=== PATIENT | male | born 1955 | race Caucasian/White ===

== ENCOUNTER 2021-05-14 08:13 | Outpatient (CLI) | payer BC | END 2021-05-14 23:59 | disposition home or self-care (01) | LOC: RAD 08:13 | DX: M48.56XA Collapsed vertebra, not elsewhere classified, lumbar region, initial encounter for fracture (principal) | CPT/HCPCS: 72148 ==

== ENCOUNTER 2024-03-05 13:17 | Inpatient (IN) | payer BC, MEDICARE ==
[~2024-03-05] VITALS: Ht 177.8 cm; Wt 74.5 kg
[2024-03-05 13:42] LABS: BASOPHILS # (AUTO) 0.1 X10'3 (0-0.2); BASOPHILS % (AUTO) 0.4 % (0-1); EOSINOPHILS # (AUTO) 0.1 X10'3 (0-0.9); EOSINOPHILS % (AUTO) 0.5 % (0-6); HEMATOCRIT 40.3 % (42.0-52.0); HEMOGLOBIN 13.4 g/dl (14.0-17.9); LYMPHOCYTES # (AUTO) 1.5 X10'3 (1.1-4.8); LYMPHOCYTES % (AUTO) 11.6 % (21-51); MEAN CORPUSCULAR HEMOGLOBIN 30.1 PG (27.0-31.0); MEAN CORPUSCULAR HGB CONC 33.2 g/dL (33.0-36.5); MEAN CORPUSCULAR VOLUME 90.8 FL (78-98); MEAN PLATELET VOLUME 8.3 FL (7.4-10.4); MONOCYTES # (AUTO) 1.4 X10'3 (0-0.9); MONOCYTES % (AUTO) 11.1 % (2-12); NEUTROPHILS # (AUTO) 9.6 X10'3 (1.8-7.7); NEUTROPHILS % (AUTO) 76.4 % (42-75); PLATELET COUNT 207 X10'3 (140-440); RED BLOOD COUNT 4.45 X10'6 (4.70-6.10); RED CELL DISTRIBUTION WIDTH 15.8 % (11.5-14.5); WHITE BLOOD COUNT 12.6 X10'3 (4.5-11.0)
[2024-03-05 13:58] LABS: ALANINE AMINOTRANSFERASE 80 U/L (12-78); ALBUMIN/GLOBULIN RATIO 0.6 (1.1-1.5); ALKALINE PHOSPHATASE 173 IU/L (46-116); ANION GAP 8 (8-16); ASPARTATE AMINO TRANSFERASE 70 U/L (10-37); BILIRUBIN,TOTAL 1.6 MG/DL (0.1-1.0); BLOOD UREA NITROGEN 24 MG/DL (7-18); BUN/CREATININE RATIO 14.8 (10.0-20.0); CALCIUM 9.5 MG/DL (8.5-10.1); CHLORIDE 93 MMOL/L (99-107); CREATININE 1.62 MG/DL (0.60-1.10); GLUCOSE 254 MG/DL (70-104); POTASSIUM 3.9 MMOL/L (3.5-5.1); SODIUM 127 MMOL/L (135-145); TOTAL CARBON DIOXIDE 26.3 MMOL/L (24-32); TOTAL PROTEIN 7.7 G/DL (6.4-8.2); eCRCL 41 ML/MIN; eGFR 42 ML/MIN
[2024-03-05 14:04] LABS: PRO BRAIN NATRIURETIC PEPTIDE 1034 PG/ML (0-125)
[2024-03-05 16:39] LABS: BILIRUBIN,URINE NEGATIVE (Neg); CLARITY,URINE CLEAR (Clear); COLOR,URINE YELLOW (Yellow); GLUCOSE, URINE 100 mg/dl (Neg); KETONES,URINE TRACE mg/dl (Neg); LEUKOCYTE ESTERASE ,URINE NEGATIVE (Neg); NITRITES, URINE NEGATIVE (Neg); OCCULT BLOOD,URINE NEGATIVE (Neg); PROTEIN,URINE NEGATIVE (Neg); UROBILINOGEN,URINE 0.2 E.U/dL (0.2-1.0)
[2024-03-05 16:42] LABS: UA COLLECTION TYPE CLN CATCH MIDSTREAM
[2024-03-05] MEDS: normal saline 1000ml 1,000 ML IV SCH (17:00)
[2024-03-05] MEDS ORDERED: acetaminophen 325mg tablet PO PRN (17:00)
[2024-03-05] MEDS ORDERED: magnesium hydroxide 30ml (MOM) UD suspension PO PRN (17:00)
[2024-03-05] MEDS ORDERED: ondansetron/PF 4mg/2ml inj IV PRN (17:00)
[2024-03-05] MEDS ORDERED: morphine 2 MG/ML inj. syringe IV PRN ×2 (17:00)
[2024-03-05] MEDS ORDERED: mag hydrox/Alum hydrox/simeth 30ml oral suspension PO PRN (17:00)
[2024-03-05 17:47] LABS: THYROID STIMULATING HORMONE 1.96 ulU/ml (0.34-4.50)
[2024-03-05 17:48] LABS: PRO BRAIN NATRIURETIC PEPTIDE 800 PG/ML (0-125)
[2024-03-05 18:00] LABS: HEMOGLOBIN A1C 10.2 % (4.5-6.2)
[2024-03-05] MEDS ORDERED: INSU300I3 (19:17)
[2024-03-05] MEDS ORDERED: ALLO300T8 PO (19:17)
[2024-03-05] MEDS ORDERED: LOSA50TA64 PO (19:17)
[2024-03-05] MEDS ORDERED: ATOR-2 PO (19:17)
[2024-03-05] MEDS ORDERED: GLIM4TAB7 PO (19:17)
[2024-03-05] MEDS ORDERED: TADA5TAB2 PO (19:19)
[2024-03-05] MEDS ORDERED: GLIM2TAB6 PO (19:19)
[2024-03-05] MEDS: docusate sod 100mg capsule PO SCH (20:00)
[2024-03-05] MEDS ORDERED: glucagon, human recombinant 1mg kit SUBCUT PRN (21:05)
[2024-03-05] MEDS ORDERED: DEXTROSE 15 GM of carb/4 tabs (each vial/BOTTLE has 4 tablets) PO PRN ×2 (21:05)
[2024-03-05] MEDS ORDERED: dextrose 50%-water 50ml dispensing syringe IV PRN ×2 (21:05)
[2024-03-05] MEDS: INSULIN LISPRO 100 UNIT/ML INSULN.PEN MULTI-DOSE SQ SCH (21:45)
[2024-03-05] MEDS: insulin glargine (Lantus) pen - multi-dose SQ SCH (21:46)
[2024-03-06] MEDS: acetaminophen 325mg tablet PO PRN (01:23)
[2024-03-06 06:00] VITALS: BP 116/54; PULSE 83; RESP 15; TEMP 100; O2SAT 96
[2024-03-06 06:03] LABS: BASOPHILS % (AUTO) 0.2 % (0-1); EOSINOPHILS % (AUTO) 0.3 % (0-6); HEMATOCRIT 34.7 % (42.0-52.0); HEMOGLOBIN 11.5 g/dl (14.0-17.9); LYMPHOCYTES # (AUTO) 1.1 X10'3 (1.1-4.8); LYMPHOCYTES % (AUTO) 8.9 % (21-51); MEAN CORPUSCULAR HEMOGLOBIN 29.6 PG (27.0-31.0); MEAN CORPUSCULAR HGB CONC 33.1 g/dL (33.0-36.5); MEAN CORPUSCULAR VOLUME 89.3 FL (78-98); MEAN PLATELET VOLUME 8.3 FL (7.4-10.4); MONOCYTES # (AUTO) 0.9 X10'3 (0-0.9); MONOCYTES % (AUTO) 7.6 % (2-12); NEUTROPHILS # (AUTO) 10.1 X10'3 (1.8-7.7); PLATELET COUNT 168 X10'3 (140-440); RED BLOOD COUNT 3.89 X10'6 (4.70-6.10); RED CELL DISTRIBUTION WIDTH 15.4 % (11.5-14.5); WHITE BLOOD COUNT 12.2 X10'3 (4.5-11.0)
[2024-03-06 06:11] LABS: ALBUMIN 2.3 G/DL (3.4-5.0); ANION GAP 9 (8-16); BLOOD UREA NITROGEN 25 MG/DL (7-18); BUN/CREATININE RATIO 15.9 (10.0-20.0); CALCIUM 8.6 MG/DL (8.5-10.1); CHLORIDE 97 MMOL/L (99-107); CREATININE 1.57 MG/DL (0.60-1.10); GLUCOSE 295 MG/DL (70-104); POTASSIUM 4.3 MMOL/L (3.5-5.1); SODIUM 130 MMOL/L (135-145); TOTAL CARBON DIOXIDE 23.6 MMOL/L (24-32); eCRCL 45 ML/MIN; eGFR 44 ML/MIN
[2024-03-06 07:38] LABS: MAGNESIUM 1.5 MG/DL (1.5-2.4); PHOSPHORUS 3.2 MG/DL (2.3-4.5)
[2024-03-06 08:00] VITALS: RESP 16; O2SAT 94
[2024-03-06 10:30] LABS: ETHANOL < 10 MG/DL (<10)
[2024-03-06] MEDS: allopurinol 300 MG tablet PO SCH (10:45)
[2024-03-06] MEDS: enoxaparin 40mg/0.4ml syringe SUBCUT SCH (10:45)
[2024-03-06 10:53] LABS: URINE AMPHETAMINE SCREEN NEGATIVE (Neg); URINE BARBITUATE SCREEN NEGATIVE (Neg); URINE BENZODIAZEPINES SCREEN NEGATIVE (Neg); URINE CANNABINOID SCREEN NEGATIVE (Neg); URINE COCAINE SCREEN NEGATIVE (Neg); URINE METHADONE SCREEN NEGATIVE (Neg); URINE OPIATE SCREEN NEGATIVE (Neg); URINE PHENCYCLIDINE SCREEN NEGATIVE (Neg)
[2024-03-06 11:00] VITALS: BP 111/73; PULSE 85; RESP 21; TEMP 97.6; O2SAT 98
[2024-03-06] MEDS ORDERED: FURO-150 PO (12:41)
[2024-03-06] MEDS ORDERED: losartan 50mg tablet PO SCH (20:00)
[2024-03-07] MEDS ORDERED: TADALAFIL 5 MG PO SCH (08:00)
[2024-03-07] MEDS ORDERED: atorvastatin 20mg tablet PO SCH (08:00)
== END 2024-03-06 13:07 | disposition home or self-care (01) | DRG 70 ==
LOC: ER 13:19 → ED HOLD 17:07 → EDBEDREQ 23:33 → PCU 3S 03-06 00:10
PROVIDERS: ADMIT Internal Medicine; ATTEND Internal Medicine
PROC: 4A00X4Z Measurement of Central Nervous Electrical Activity, External Approach (ICD-10-PCS; principal; 2024-03-06)
DX: G93.41 Metabolic encephalopathy (principal); N17.0 Acute kidney failure with tubular necrosis; I50.30 Unspecified diastolic (congestive) heart failure; E87.1 Hypo-osmolality and hyponatremia; E11.65 Type 2 diabetes mellitus with hyperglycemia; M25.512 Pain in left shoulder; M54.2 Cervicalgia; R63.4 Abnormal weight loss; R56.9 Unspecified convulsions; Z68.23 Body mass index [BMI] 23.0-23.9, adult
CPT/HCPCS: 36415; 71045; 80048; 80053; 80305; 80320; 81003; 82140; 82948; 83036; 83735; 83880; 84100; 84443; 84484; 85025; 87081; 93005; 93306; 95816; 99285; G0378; J1650; J1815; J7030

== ENCOUNTER 2024-03-12 05:13 | Inpatient (IN) | payer BC, MEDICARE ==
[~2024-03-12] VITALS: Ht 332.7 cm; Wt 86.7 kg
[~2024-03-12 05:13] MED LIST: ALLO300T8 PO; ATOR-2 PO; FURO-150 PO; GLIM4TAB7 PO; INSU300I3; LOSA50TA64 PO; TADA5TAB2 PO
[2024-03-12 06:42] LABS: ALANINE AMINOTRANSFERASE 76 U/L (12-78); ALBUMIN 2.1 G/DL (3.4-5.0); ALBUMIN/GLOBULIN RATIO 0.6 (1.1-1.5); ALKALINE PHOSPHATASE 154 IU/L (46-116); ANION GAP 10 (8-16); ASPARTATE AMINO TRANSFERASE 46 U/L (10-37); BILIRUBIN,TOTAL 1.7 MG/DL (0.1-1.0); BLOOD UREA NITROGEN 20 MG/DL (7-18); BUN/CREATININE RATIO 13.2 (10.0-20.0); CALCIUM 8.5 MG/DL (8.5-10.1); CHLORIDE 98 MMOL/L (99-107); CREATININE 1.52 MG/DL (0.60-1.10); GLUCOSE 345 MG/DL (70-104); POTASSIUM 3.9 MMOL/L (3.5-5.1); SODIUM 129 MMOL/L (135-145); TOTAL CARBON DIOXIDE 21.3 MMOL/L (24-32); TOTAL PROTEIN 5.9 G/DL (6.4-8.2); eCRCL 48 ML/MIN; eGFR 46 ML/MIN
[2024-03-12 06:50] LABS: PRO BRAIN NATRIURETIC PEPTIDE 4156 PG/ML (0-125)
[2024-03-12] MEDS: VANCOMYCIN 1,500MG in NS 300ml IVPB IV ONE (06:56)
[2024-03-12] MEDS: cefepime 2g/NS 100ml ADVANTAGE 100 ML IV SCH (06:56)
[2024-03-12 08:19] LABS: BASOPHILS % (AUTO) 0.3 % (0-1); EOSINOPHILS % (AUTO) 0.1 % (0-6); HEMATOCRIT 30.6 % (42.0-52.0); HEMOGLOBIN 10.2 g/dl (14.0-17.9); LYMPHOCYTES # (AUTO) 0.4 X10'3 (1.1-4.8); LYMPHOCYTES % (AUTO) 3.3 % (21-51); MEAN CORPUSCULAR HEMOGLOBIN 29.8 PG (27.0-31.0); MEAN CORPUSCULAR HGB CONC 33.4 g/dL (33.0-36.5); MEAN CORPUSCULAR VOLUME 89.3 FL (78-98); MEAN PLATELET VOLUME 9.1 FL (7.4-10.4); MONOCYTES # (AUTO) 0.5 X10'3 (0-0.9); NEUTROPHILS # (AUTO) 11.7 X10'3 (1.8-7.7); NEUTROPHILS % (AUTO) 92.3 % (42-75); PLATELET COUNT 159 X10'3 (140-440); RED BLOOD COUNT 3.43 X10'6 (4.70-6.10); RED CELL DISTRIBUTION WIDTH 15.4 % (11.5-14.5); WHITE BLOOD COUNT 12.7 X10'3 (4.5-11.0)
[2024-03-12 08:27] LABS: BILIRUBIN,URINE NEGATIVE (Neg); CLARITY,URINE CLEAR (Clear); COLOR,URINE YELLOW (Yellow); GLUCOSE, URINE 250 mg/dl (Neg); KETONES,URINE NEGATIVE (Neg); LEUKOCYTE ESTERASE ,URINE NEGATIVE (Neg); NITRITES, URINE NEGATIVE (Neg); OCCULT BLOOD,URINE NEGATIVE (Neg); PROTEIN,URINE TRACE mg/dl (Neg); UROBILINOGEN,URINE 0.2 E.U/dL (0.2-1.0)
[2024-03-12 08:32] LABS: UA COLLECTION TYPE NON-SPECIFIED
[2024-03-12 08:34] LABS: BACTERIA,URINE FEW /HPF (Neg); FINE GRANULAR CAST 0-3 /LPF (NEGATIVE); HYALINE CASTS 0-3 /LPF (NEGATIVE); MUCUS STRANDS FEW /LPF (Neg); RBC,URINE NONE SEEN /HPF (0-2); SQUAMOUS EPITHELIAL CELL,UR FEW /LPF (FEW); WBC,URINE 0-4 /HPF (0-4)
[2024-03-12] MEDS ORDERED: magnesium sulf-water 2g/50mL 50 ML IV PRN ×2 (09:30)
[2024-03-12] MEDS ORDERED: magnesium Cl slow-release 64mg tablet PO PRN ×2 (09:30)
[2024-03-12] MEDS ORDERED: magnesium sulf-water 4G/100mL 100 ML IV PRN ×2 (09:30)
[2024-03-12] MEDS ORDERED: potassium Cl 40MEQ/1/2NS 520ml 520 ML IV PRN (09:30)
[2024-03-12] MEDS ORDERED: ondansetron/PF 4mg/2ml inj IV PRN (09:30)
[2024-03-12] MEDS ORDERED: potassium Cl 20 mEq SR tablet PO PRN (09:30)
[2024-03-12] MEDS ORDERED: acetaminophen 325mg tablet PO PRN (09:30)
[2024-03-12 09:55] LABS: MAGNESIUM 1.4 MG/DL (1.5-2.4); POTASSIUM 3.7 MMOL/L (3.5-5.1)
[2024-03-12] MEDS: CefTRIAXone/D5W-Rocephin 1gm 50 ML IV SCH (09:55)
[2024-03-12] MEDS: normal saline 1000ml 1,000 ML IV SCH (09:55)
[2024-03-12] MEDS: azithromycin/NS 500mg/250ml 250 ML IV SCH (10:42)
[2024-03-12] MEDS ORDERED: DEXTROSE 15 GM of carb/4 tabs (each vial/BOTTLE has 4 tablets) PO PRN ×2 (14:20)
[2024-03-12] MEDS ORDERED: dextrose 50%-water 50ml dispensing syringe IV PRN (14:20)
[2024-03-12] MEDS ORDERED: glucagon, human recombinant 1mg kit SUBCUT PRN (14:20)
[2024-03-12] MEDS: INSULIN LISPRO 100 UNIT/ML INSULN.PEN MULTI-DOSE SQ SCH ×3 (17:00→18:00)
[2024-03-12 18:00] VITALS: BP 98/63; PULSE 77; TEMP 98.2; O2SAT 16
[2024-03-12 20:00] VITALS: RESP 16; O2SAT 98
[2024-03-12] MEDS: K and/or MAG REPLACEMENT MC SCH (20:00)
[2024-03-12] MEDS: heparin, porcine 5000 units/ml vial SQ SCH (20:57)
[2024-03-12] MEDS: insulin glargine (Lantus) pen - multi-dose SQ SCH (21:32)
[2024-03-12] MEDS: acetaminophen 325mg tablet PO PRN (22:30)
[2024-03-13] VITALS (9 sets, daily range): BP systolic 96–126; BP diastolic 42–87; PULSE 58–87; RESP 14–18; TEMP 97.4–98.9; O2SAT 92–100
[2024-03-13 05:35] LABS: BASOPHILS % (AUTO) 0.3 % (0-1); EOSINOPHILS # (AUTO) 0.1 X10'3 (0-0.9); HEMATOCRIT 29.3 % (42.0-52.0); HEMOGLOBIN 9.9 g/dl (14.0-17.9); LYMPHOCYTES # (AUTO) 1.2 X10'3 (1.1-4.8); LYMPHOCYTES % (AUTO) 11.3 % (21-51); MEAN CORPUSCULAR HEMOGLOBIN 30.3 PG (27.0-31.0); MEAN CORPUSCULAR HGB CONC 33.9 g/dL (33.0-36.5); MEAN CORPUSCULAR VOLUME 89.4 FL (78-98); MEAN PLATELET VOLUME 8.8 FL (7.4-10.4); MONOCYTES # (AUTO) 1.1 X10'3 (0-0.9); MONOCYTES % (AUTO) 9.8 % (2-12); NEUTROPHILS # (AUTO) 8.5 X10'3 (1.8-7.7); NEUTROPHILS % (AUTO) 77.6 % (42-75); PLATELET COUNT 146 X10'3 (140-440); RED BLOOD COUNT 3.28 X10'6 (4.70-6.10); RED CELL DISTRIBUTION WIDTH 15.8 % (11.5-14.5)
[2024-03-13 05:45] LABS: ANION GAP 7 (8-16); BLOOD UREA NITROGEN 17 MG/DL (7-18); BUN/CREATININE RATIO 12.9 (10.0-20.0); CALCIUM 8.5 MG/DL (8.5-10.1); CHLORIDE 107 MMOL/L (99-107); CREATININE 1.32 MG/DL (0.60-1.10); GLUCOSE 58 MG/DL (70-104); MAGNESIUM 1.7 MG/DL (1.5-2.4); POTASSIUM 3.4 MMOL/L (3.5-5.1); SODIUM 140 MMOL/L (135-145); TOTAL CARBON DIOXIDE 26.4 MMOL/L (24-32); eCRCL 64 ML/MIN; eGFR 54 ML/MIN
[2024-03-13] MEDS: dextrose 50%-water 50ml dispensing syringe IV PRN (06:21)
[2024-03-13] MEDS: INSULIN LISPRO 100 UNIT/ML INSULN.PEN MULTI-DOSE SQ SCH ×2 (07:30→12:30)
[2024-03-13] MEDS: potassium Cl 20 mEq SR tablet PO PRN (08:41)
[2024-03-13] MEDS: insulin glargine (Lantus) pen - multi-dose SQ SCH (21:00)
[2024-03-14 02:00] VITALS: BP 99/46; PULSE 73; RESP 16; TEMP 97.2; O2SAT 98
[2024-03-14 05:47] LABS: ALBUMIN 2.1 G/DL (3.4-5.0); ANION GAP 8 (8-16); BLOOD UREA NITROGEN 12 MG/DL (7-18); BUN/CREATININE RATIO 9.9 (10.0-20.0); CALCIUM 8.5 MG/DL (8.5-10.1); CHLORIDE 107 MMOL/L (99-107); CREATININE 1.21 MG/DL (0.60-1.10); GLUCOSE 140 MG/DL (70-104); MAGNESIUM 1.7 MG/DL (1.5-2.4); POTASSIUM 4.3 MMOL/L (3.5-5.1); SODIUM 140 MMOL/L (135-145); TOTAL CARBON DIOXIDE 25.5 MMOL/L (24-32); eCRCL 70 ML/MIN; eGFR 59 ML/MIN
[2024-03-14 05:54] LABS: BASOPHILS % (AUTO) 0.5 % (0-1); EOSINOPHILS # (AUTO) 0.1 X10'3 (0-0.9); EOSINOPHILS % (AUTO) 1.8 % (0-6); HEMATOCRIT 31.1 % (42.0-52.0); HEMOGLOBIN 10.3 g/dl (14.0-17.9); LYMPHOCYTES # (AUTO) 1.4 X10'3 (1.1-4.8); LYMPHOCYTES % (AUTO) 18.1 % (21-51); MEAN CORPUSCULAR HEMOGLOBIN 29.8 PG (27.0-31.0); MEAN CORPUSCULAR HGB CONC 33.2 g/dL (33.0-36.5); MEAN CORPUSCULAR VOLUME 89.8 FL (78-98); MEAN PLATELET VOLUME 8.9 FL (7.4-10.4); MONOCYTES # (AUTO) 0.6 X10'3 (0-0.9); MONOCYTES % (AUTO) 7.1 % (2-12); NEUTROPHILS # (AUTO) 5.7 X10'3 (1.8-7.7); NEUTROPHILS % (AUTO) 72.5 % (42-75); PLATELET COUNT 168 X10'3 (140-440); RED BLOOD COUNT 3.46 X10'6 (4.70-6.10); WHITE BLOOD COUNT 7.9 X10'3 (4.5-11.0)
[2024-03-14 06:00] VITALS: BP 119/49; PULSE 77; RESP 18; TEMP 97.4; O2SAT 98
[2024-03-14 08:00] VITALS: RESP 18; O2SAT 98
[2024-03-14] MEDS ORDERED: LEVO-65 PO (12:41)
[2024-03-14 12:42] VITALS: BP 106/45; PULSE 85; RESP 16; TEMP 98.6; O2SAT 97
== END 2024-03-14 13:51 | disposition home or self-care (01) | DRG 871 ==
LOC: ER 05:13 → ED HOLD 09:35 → PCU 3S 13:34
PROVIDERS: ADMIT Internal Medicine; ATTEND Internal Medicine
DX: A41.9 Sepsis, unspecified organism (principal); G93.41 Metabolic encephalopathy; J18.9 Pneumonia, unspecified organism; I13.0 Hypertensive heart and chronic kidney disease with heart failure and stage 1 through stage 4 chronic kidney disease, or unspecified chronic kidney disease; E87.1 Hypo-osmolality and hyponatremia; N17.9 Acute kidney failure, unspecified; I50.30 Unspecified diastolic (congestive) heart failure; E78.5 Hyperlipidemia, unspecified; E11.9 Type 2 diabetes mellitus without complications; E11.22 Type 2 diabetes mellitus with diabetic chronic kidney disease; N18.9 Chronic kidney disease, unspecified; Z20.822 Contact with and (suspected) exposure to COVID-19; D64.9 Anemia, unspecified; Z79.84 Long term (current) use of oral hypoglycemic drugs; Z79.899 Other long term (current) drug therapy; Z79.4 Long term (current) use of insulin; Z85.46 Personal history of malignant neoplasm of prostate; Z95.3 Presence of xenogenic heart valve
CPT/HCPCS: 36415; 70450; 71045; 80048; 80053; 81001; 82948; 83605; 83735; 83880; 84132; 84145; 84484; 85025; 87040; 87077; 87081; 87186; 87811; 93005; 96365; 96367; 97110; 97161; 97530; 99291; G0378; J0456; J0692; J0696; J1644; J1815; J3370; J3490; J7030; J7040